=== PATIENT | female | born 1955 | race Caucasian/White ===

== ENCOUNTER 2016-11-11 06:27 | Day surgery (SDC) | payer BC ==
[2016-11-04 13:13] VITALS: BMI 22.4
[2016-11-11] MEDS ORDERED: LIDOCAINE HCL 2% (20ML MULTI-DOSE VIAL) NR ONE (07:14)
[2016-11-11] MEDS ORDERED: ONDANSETRON 4 MG/2 ML VIAL ONE (12:15)
[2016-11-11] MEDS ORDERED: DEXAMETHASONE SOD PHOSPHATE 4 MG/1 ML VIAL ONE (12:15)
[2016-11-11] MEDS ORDERED: MIDAZOLAM HCL 2 MG/2 ML SINGLE DOSE VIAL ONE ×2 (12:18)
[2016-11-11] MEDS ORDERED: BUPIVACAINE HCL/PF 2.5 MG/ML - 30 ML VIAL IJ ONE (12:25)
[2016-11-11] MEDS ORDERED: BUPIVACAINE 0.25% /EPI 1:200,000 10 ML VIAL INF ONE ×2 (12:39)
[2016-11-11] MEDS ORDERED: ONDANSETRON 4 MG/2 ML VIAL IVPUSH PRN (13:21)
[2016-11-11] MEDS ORDERED: oxyCODONE HCL 5 MG TABLET PO PRN ×2 (13:21)
[2016-11-11] MEDS ORDERED: KETOROLAC TROMETHAMINE 30 MG/1 ML VIAL ONE (13:24)
[2016-11-11] MEDS ORDERED: LACTATED RINGERS SOLUTION 1,000 ML IV SCH (13:30)
[2016-11-11 15:11] VITALS: BP 124/71; PULSE 65; TEMP 97.9
--- NOTE | 2016-11-12 09:56 | OP ---
DATE OF OPERATION: 11/11/2016 PREOPERATIVE DIAGNOSIS: Left hand Dupuytren disease. POSTOPERATIVE DIAGNOSIS: Left hand Dupuytren disease. OPERATIVE PROCEDURE: Partial palmar fasciectomy of the palm and thumb. SURGEON: Jayne Conrad MD DIVISION ENGINEER: JEANNINE Garza ANESTHESIA: General. COMPLICATIONS: None. ESTIMATED BLOOD LOSS: Minimal. INDICATION FOR PROCEDURE: The patient is a 61-year-old female with the above finding, indicated for operative treatment. Risks, benefits, alternatives were discussed with the patient at length. Proper informed consent was obtained. PROCEDURE: After proper identification of the patient and correct operative site, the patient was brought to the operating room and placed supine on the table. Prominences well padded. General anesthesia provided by the anesthesiologist and adequate for the procedure. Left upper extremity was prepped and draped in the usual sterile fashion. Well-padded tourniquet placed with a sterile prep. Esmarch bandage to exsanguinate the left upper extremity. Tourniquet was inflated to 250 mmHg. Longitudinal and oblique incisions were made over the multiple nodules in the palm and the thumb. Incisions were taken sharply through the skin. Three separate incisions were made. Two were over the palm and 1 was made over the thumb proximal phalangeal segment volarly. Incisions were taken sharply through the skin, with blunt and sharp dissection through subcutaneous tissues. Nodules were identified and excised, taking care to protect neurovascular structures. They were sent for pathologic evaluation. Wounds were irrigated with saline and repaired with 5-0 nylon suture. Sterile dressings were applied. Patient was reversed from anesthesia and brought to the recovery room in stable condition. Chuy Manzano, the assistant clinical nurse manager, was integral throughout the procedure. The procedure could not have been performed without a skilled operative assistant clinical nurse manager. JAYNE CONRAD M.D. [id number]
--- NOTE | 2016-11-13 15:00 | PATH ---
Surgical Pathology Report Patient Name: TERRANCE DOUGLASS [facility]. Rec. #: [id number] /Age/Gender: 1955 (Age: 61) / F Account: [id number] Location: [facility] AMBULATORY Taken: 11/11/2016 Received: 11/11/2016 Reported: 11/13/2016 Physicians: Jose Heard M.D. Specimen(s) Received LEFT ESCOBAR FASCIA Clinical History Left hand Dupuytren's Final Diagnosis SOFT TISSUE, LEFT PALMAR FASCIA, EXCISION: SYNOVIUM AND FIBROUS TISSUE WITH FIBROMATOSIS CONSISTENT WITH DUPUYTREN'S CONTRACTURE. Electronically Signed Rishabh Alvarado M.D. Gross Description Received in formalin labeled "left palmar fascia," are 4 james soft tissue fragments ranging from 0.3-0.8 cm in greatest dimension. The specimen is submitted in toto in one cassette. 11/12/201611/12/2016
== END 2016-11-11 15:00 | disposition home or self-care (01) ==
LOC: FASU 06:27
PROVIDERS: ATTEND Orthopaedic Surgery Hand Surgery
PROC: 0JNK0ZZ Release Left Hand Subcutaneous Tissue and Fascia, Open Approach (ICD-10-PCS; principal; 2016-11-11 12:09)
DX: M72.0 Palmar fascial fibromatosis [Dupuytren] (principal)
CPT/HCPCS: 88304-TC; 94760

== ENCOUNTER 2017-01-20 08:01 | Day surgery (SDC) | payer BC ==
[2017-01-14 12:33] VITALS: BMI 21.1
[2017-01-20] MEDS ORDERED: LIDOCAINE HCL 1%, 10 MG/ML (20ML VIAL) ONE (08:55)
[2017-01-20] MEDS ORDERED: LIDOCAINE HCL 2% (20ML MULTI-DOSE VIAL) NR ONE (08:56)
[2017-01-20] MEDS ORDERED: BUPIVACAINE HCL/PF 0.5% (5MG/ML) 10 ML VIAL ONE (10:24)
[2017-01-20] MEDS ORDERED: LACTATED RINGERS SOLUTION 1,000 ML IV SCH (11:00)
[2017-01-20] MEDS ORDERED: oxyCODONE HCL 5 MG TABLET PO PRN ×2 (11:00)
[2017-01-20] MEDS ORDERED: ONDANSETRON 4 MG/2 ML VIAL IVPUSH PRN (11:00)
[2017-01-20 12:00] VITALS: TEMP 98.2
[2017-01-20 12:35] VITALS: BP 124/74; PULSE 66
--- NOTE | 2017-01-21 14:58 | PATH ---
Surgical Pathology Report Patient Name: TERRANCE DOUGLASS [facility]. Rec. #: [id number] /Age/Gender: 1955 (Age: 61) / F Account: [id number] Location: [facility] AMBULATORY Taken: 01/20/2017 Received: 01/20/2017 Reported: 01/21/2017 Physicians: Jose Heard M.D. Specimen(s) Received DUPUYTREN'S TISSUE RIGHT HAND Clinical History Dupuytren's contracture right hand Final Diagnosis RIGHT HAND, DUPUYTREN'S TISSUE, EXCISION: DENSE FIBROUS TISSUE AND SCANT ADIPOSE TISSUE. Electronically Signed Kathya Nix M.D. Gross Description Received in formalin labeled "Dupuytren's tissue right hand," is a 2.5 x 0.7 x 0.3 cm james-yellow, irregular portion of fibrous tissue. The specimen is submitted in toto in one cassette. 01/20/201701/20/2017
--- NOTE | 2017-01-22 07:26 | OP ---
DATE OF OPERATION: 01/20/2017 PREOPERATIVE DIAGNOSIS: Right Dupuytrens contracture with cord. POSTOPERATIVE DIAGNOSIS: Right Dupuytrens contracture with cord. OPERATIVE PROCEDURE: Right palm and ring partial palmar fasciectomy with release of Dupuytrens cord. SURGEON: Jayne Conrad MD CONVEYOR WORKER: JEANNINE Garza ANESTHESIA: General. COMPLICATIONS: None. ESTIMATED BLOOD LOSS: Minimal. INDICATIONS FOR PROCEDURE: The patient is a 61-year-old female with the above findings. She was indicated for operative treatment. The risks, benefits, and alternatives were discussed with the patient at length, and proper informed consent was obtained. DESCRIPTION OF PROCEDURE: After proper identification of the patient and the correct operative site, the patient was brought to the operating room and placed supine on the operating room table. All bony prominences were well padded. Right upper extremity was prepped and draped in the usual sterile fashion. A well-padded tourniquet was placed with a sterile prep. Esmarch bandage used to exsanguinate the right upper extremity, and tourniquet inflated to 250 mmHg. A longitudinal incision was made in the palm into the base of the finger. Incision was taken sharply through the skin. Blunt and sharp dissection was performed through the subcutaneous tissues. Dupuytrens cord was noted and released proximally with careful dissection. Neurovascular structures were carefully identified and protected. Proximal distal dissection was performed until the cord was completely removed. This allowed full straightening of the finger. Wound was irrigated with saline and repaired with 5-0 nylon suture. Sterile dressings were applied. Patient was reversed from anesthesia and brought to the recovery room in stable condition. Chuy Manzano, the casting assistant, was integral throughout this procedure. Procedure could not have been performed without a skilled operative casting assistant. JAYNE CONRAD M.D. [id number]
== END 2017-01-20 12:42 | disposition home or self-care (01) ==
LOC: FASU 08:01
PROVIDERS: ATTEND Orthopaedic Surgery Hand Surgery
PROC: 0JNJ0ZZ Release Right Hand Subcutaneous Tissue and Fascia, Open Approach (ICD-10-PCS; principal; 2017-01-20 10:13)
DX: M72.0 Palmar fascial fibromatosis [Dupuytren] (principal)
CPT/HCPCS: 88304-TC; 94760